=== PATIENT | male | born 1995 | race American Indian/Alaskan Native ===

== ENCOUNTER 2018-01-22 22:34 | Emergency (ER) | payer SELFPAY ==
[2018-01-22 23:37] LABS: Bilirubin,Urine NEG (Negative); Blood,Urine NEG (Negative); Color,Urine Yellow (Yellow); Mucus,Urine 1+ /HPF; Protein,Urine <15 mg/dL mg/dL (Negative)
[2018-01-22 23:49] LABS: Amphetamine Screen,Urine PRESUMPTIVE NEGATIVE; Benzodiazepines Screen,Urine PRESUMPTIVE NEGATIVE; Cocaine Screen,Urine PRESUMPTIVE NEGATIVE; Methadone Screen,Urine PRESUMPTIVE NEGATIVE; Opiate Screen,Urine PRESUMPTIVE NEGATIVE
[2018-01-23 00:14] LABS: Basophils % (Auto) 0.6 % (0.0-1.8); Eosinophils # (Auto) 0.1 K/mm3 (0.0-0.4); Eosinophils % (Auto) 1.4 % (0.0-4.3); Hematocrit 42.8 % (35.5-45.6); Hemoglobin 14.3 gm/dl (11.8-15.2); Lymphocytes # (Auto) 1.5 K/mm3 (1.2-5.4); Mean Corpuscular HGB Conc 33 % (32-34); Mean Corpuscular Hemoglobin 28 pg (28-32); Mean Corpuscular Volume 85 fl (84-94); Monocytes # (Auto) 0.4 K/mm3 (0.0-0.8); Monocytes % (Auto) 6.1 % (0.0-7.3); Platelet Count 188 K/mm3 (140-440); Red Blood Count 5.01 M/mm3 (3.65-5.03); Red Cell Distribution Width 12.6 % (13.2-15.2)
[2018-01-23 00:19] LABS: Cannabinoid Screen,Urine PRESUMPTIVE POSITIVE
[2018-01-23 00:30] LABS: BUN/Creatinine Ratio 11; Blood Urea Nitrogen 14 mg/dL (9-20); Hemolysis Index 12
--- NOTE | 2018-01-23 01:56 | Cat Scan Report ---
FINAL REPORT PROCEDURE: CT HEAD/BRAIN WO CON TECHNIQUE: Computerized tomography of the head was performed without contrast material. HISTORY: syncope COMPARISON: No prior studies are available for comparison. FINDINGS: Skull and scalp: Normal. Paranasal sinuses: Normal. Ventricles and subarachnoid spaces: Normal. Cerebrum: No evidence of hemorrhage, acute infarction or mass . Cerebellum and brainstem: No evidence of hemorrhage, acute infarction or mass. Vasculature: Normal. Comments: None. IMPRESSION: Normal Examination
[2018-01-23 02:59] LABS: Creatine Kinase MB 3.4 ng/mL (0.0-4.0)
[2018-01-23] MEDS ORDERED: NACL 0.9% 1000 ML 1,000 ML IV ONE ×3 (03:00→03:33)
--- NOTE | 2018-01-23 03:33 | Emergency Department Report ---
ED Syncope HPI - General Chief Complaint: Syncope Stated Complaint: SYNCOPE EPISODES Time Seen by Provider: 01/23/18 02:30 Source: patient Exam Limitations: no limitations - History of Present Illness Initial Comments: 22-year-old male with no shift in past medical or surgical history presents to the hospital status post possible syncopal episode at 10 PM. Patient states he does not remember the details. He remembers going to see a new home with his family. Apparently his mother found him on the floor. Episode was unwitnessed. Patient did not bite his tongue or urinate on himself. He can't remember if he has been eating or drinking appropriately. He has some mild pain to his right parietal area of his scalp. No other pain reported. Previous history of seizures. Patient is to marijuana use but denies alcohol or other drug abuse. - Related Data Allergies/Adverse Reactions: Allergies No Known Allergies Allergy (Unverified 01/22/18 23:06) ED Review of Systems ROS: Stated complaint: SYNCOPE EPISODES Other details as noted in HPI Comment: All other systems reviewed and negative Other: Constitutional: No fevers chills Eyes: No eye pain visual changes ENT: No ear pain or throat pain Neck: Denies pain Respiratory: Denies cough wheezing shortness of breath Cardiovascular: Denies chest pain, palpitations GI: Denies abdominal pain, nausea, vomiting, diarrhea : Denies dysuria Musculoskeletal: Denies back pain Skin: Denies rash, lesions, erythema Neurologic: Denies headache, numbness, weakness Psychiatric: Denies suicidal ideation, hallucinations ED Past Medical Hx - Past Medical History Previous Medical History?: No - Surgical History Past Surgical History?: No - Social History Smoking Status: Current Every Day Smoker Substance Use Type: Marijuana ED Physical Exam - General Limitations: No Limitations - Other Other exam information: General: No limitations, patient is alert in no acute distress Head exam: Mild tenderness to right parotid Area without hematoma or laceration Eyes exam: Normal appearance, pupils equal reactive to light, extraocular movements intact ENT: Moist mucous membrane, normal oropharynx Neck exam: Normal inspection, full range of motion, no meningismus nontender Respiratory exam: Clear to auscultation bilateral, no wheezes, rales, crackles Cardiovascular: Normal rate and rhythm, normal heart sounds Abdomen: Soft, nondistended, and nontender, with normal bowel sounds, no rebound, or guarding Extremity: Full range of motion normal inspection no deformity Back: Normal Inspection, full range of motion, no tenderness Neurologic: Alert, oriented x3, cranial nerves intact, no motor or sensory deficit, [id number] function intact. Psychiatric: normal affect, normal mood Skin: Warm, dry, intact ED Course Vital Signs 01/22/18 01/23/18 01/23/18 23:02 01:26 01:30 Temperature 98.6 F Pulse Rate 66 44 L 41 L Respiratory 18 18 19 Rate Blood Pressure 127/86 123/67 O2 Sat by Pulse 100 100 100 Oximetry 01/23/18 01/23/18 01/23/18 01:41 01:46 02:00 Temperature Pulse Rate 41 L 43 L Respiratory 20 15 16 Rate Blood Pressure 106/67 104/60 O2 Sat by Pulse 99 99 98 Oximetry 01/23/18 01/23/18 02:16 02:30 Temperature Pulse Rate 46 L 46 L Respiratory 16 17 Rate Blood Pressure 104/60 99/51 O2 Sat by Pulse 98 98 Oximetry - Reevaluation(s) Reevaluation #1: 01/23/18 03:32 Vital signs reveals significant orthostasis as suggested by increased heart rate with standing. Patient also had dizziness with standing. Blood pressure did not drop. To use a normal saline ordered ED Medical Decision Making - Lab Data Result diagrams: 01/22/18 23:27 01/22/18 23:27 Lab Results 01/22/18 01/22/18 01/22/18 Range/Units 23:27 23:27 23:27 WBC 6.6 (4.5-11.0) K/mm3 RBC 5.01 (3.65-5.03) M/mm3 Hgb 14.3 (11.8-15.2) gm/dl Hct 42.8 (35.5-45.6) % MCV 85 (84-94) fl MCH 28 (28-32) pg MCHC 33 (32-34) % RDW 12.6 L (13.2-15.2) % Plt Count 188 (140-440) K/mm3 Lymph % (Auto) 23.0 (13.4-35.0) % [place] % (Auto) 6.1 (0.0-7.3) % Eos % (Auto) 1.4 (0.0-4.3) % Baso % (Auto) 0.6 (0.0-1.8) % Lymph # 1.5 (1.2-5.4) K/mm3 [place] # 0.4 (0.0-0.8) K/mm3 Eos # 0.1 (0.0-0.4) K/mm3 Baso # 0.0 (0.0-0.1) K/mm3 Seg Neutrophils % 68.9 (40.0-70.0) % Seg Neutrophils # 4.5 (1.8-7.7) K/mm3 Sodium 138 (137-145) mmol/L Potassium 3.8 (3.6-5.0) mmol/L Chloride 99.1 (98-107) mmol/L Carbon Dioxide 26 (22-30) mmol/L Anion Gap 17 mmol/L BUN 14 (9-20) mg/dL Creatinine 1.3 (0.8-1.5) mg/dL Estimated GFR > 60 ml/min BUN/Creatinine Ratio 11 % Glucose 93 (75-100) mg/dL Calcium 9.0 (8.4-10.2) mg/dL Total Creatine Kinase 786 H (55-170) units/L CK-MB (CK-2) 3.4 (0.0-4.0) ng/mL CK-MB (CK-2) Rel Index 0.4 (0-4) Troponin T < 0.010 (0.00-0.029) ng/mL Urine Color (Yellow) Urine Turbidity (Clear) Urine pH (5.0-7.0) Ur Specific [place] (1.003-1.030) Urine Protein (Negative) mg/dL Urine Glucose (UA) (Negative) mg/dL Urine Ketones (Negative) mg/dL Urine Blood (Negative) Urine Nitrite (Negative) Urine Bilirubin (Negative) Urine Urobilinogen (<2.0) mg/dL Ur Leukocyte Esterase (Negative) Urine WBC (Auto) (0.0-6.0) /HPF Urine RBC (Auto) (0.0-6.0) /HPF Urine Mucus /HPF Urine Opiates Screen Urine Methadone Screen Ur Barbiturates Screen Ur Phencyclidine Scrn Ur Amphetamines Screen U Benzodiazepines Scrn Urine Cocaine Screen U Marijuana (THC) Screen Drugs of Abuse Note 02/23/18 02/23/18 02/24/18 Range/Units Unknown Unknown 04:49 WBC (4.5-11.0) K/mm3 RBC (3.65-5.03) M/mm3 Hgb (11.8-15.2) gm/dl Hct (35.5-45.6) % MCV (84-94) fl MCH (28-32) pg MCHC (32-34) % RDW (13.2-15.2) % Plt Count (140-440) K/mm3 Lymph % (Auto) (13.4-35.0) % [place] % (Auto) (0.0-7.3) % Eos % (Auto) (0.0-4.3) % Baso % (Auto) (0.0-1.8) % Lymph # (1.2-5.4) K/mm3 [place] # (0.0-0.8) K/mm3 Eos # (0.0-0.4) K/mm3 Baso # (0.0-0.1) K/mm3 Seg Neutrophils % (40.0-70.0) % Seg Neutrophils # (1.8-7.7) K/mm3 Sodium (137-145) mmol/L Potassium (3.6-5.0) mmol/L Chloride (98-107) mmol/L Carbon Dioxide (22-30) mmol/L Anion Gap mmol/L BUN (9-20) mg/dL Creatinine (0.8-1.5) mg/dL Estimated GFR ml/min BUN/Creatinine Ratio % Glucose (75-100) mg/dL Calcium (8.4-10.2) mg/dL Total Creatine Kinase 525 H (55-170) units/L CK-MB (CK-2) (0.0-4.0) ng/mL CK-MB (CK-2) Rel Index (0-4) Troponin T (0.00-0.029) ng/mL Urine Color Yellow (Yellow) Urine Turbidity Clear (Clear) Urine pH 6.0 (5.0-7.0) Ur Specific [place] 1.026 (1.003-1.030) Urine Protein <15 mg/dl (Negative) mg/dL Urine Glucose (UA) Neg (Negative) mg/dL Urine Ketones Neg (Negative) mg/dL Urine Blood Neg (Negative) Urine Nitrite Neg (Negative) Urine Bilirubin Neg (Negative) Urine Urobilinogen 2.0 (<2.0) mg/dL Ur Leukocyte Esterase Neg (Negative) Urine WBC (Auto) 1.0 (0.0-6.0) /HPF Urine RBC (Auto) 1.0 (0.0-6.0) /HPF Urine Mucus 1+ /HPF Urine Opiates Screen Presumptive negative Urine Methadone Screen Presumptive negative Ur Barbiturates Screen Presumptive negative Ur Phencyclidine Scrn Presumptive negative Ur Amphetamines Screen Presumptive negative U Benzodiazepines Scrn Presumptive negative Urine Cocaine Screen Presumptive negative U Marijuana (THC) Screen Presumptive positive Drugs of Abuse Note Disclamer - EKG Data -: EKG Interpreted by Ri EKG shows normal: sinus rhythm, axis (45), QRS complexes (93), ST-T waves ( early repol. no stemi) Rate: bradycardia (55) - EKG Data When compared to previous EKG there are: previous EKG unavailable - Radiology Data Radiology results: report reviewed read By radiologist CT head no acute findings - Medical Decision Making After 3 L IV fluids patient vital signs are repeat still has am increase in heart rate with standing however, no drop in blood pressure has been noted. CK trending downward. Patient ambulating in the ED without difficulty and denies dizziness. He will be discharged home to follow up with primary care doctor and photographic specialist for further evaluation - Differential Diagnosis syncope, seizure, vasovagal, anemia, dehydration, ICH Critical Care Time: No Critical care attestation.: If time is entered above; I have spent that time in minutes in the direct care of this critically ill patient, excluding procedure time. ED Disposition Clinical Impression: Syncope, Head injury Disposition: TO HOME OR SELFCARE Is pt being admited?: No Does the pt Need Aspirin: No Condition: Stable Instructions: Syncope (ED) Additional Instructions: Follow-up with the clinic or primary care doctor provided. Return is symptoms worsen as indicated by your discharge instruction. Take Motrin or Tylenol as needed for pain. Referrals: EBONY MENESES MD [Staff Physician] - 3-5 Days (Primary care doctor) [facility] [Provider Group] - 3-5 Days (Primary care clinic) Time of Disposition: 06:03
[2018-01-23 06:24] VITALS: BP 101/64
== END 2018-01-23 06:24 | disposition home or self-care (01) ==
LOC: ED 22:34
DX: S09.90XA Unspecified injury of head, initial encounter (principal); R55 Syncope and collapse; F17.200 Nicotine dependence, unspecified, uncomplicated; F12.10 Cannabis abuse, uncomplicated; X58.XXXA Exposure to other specified factors, initial encounter; Y93.89 Activity, other specified; Y92.89 Other specified places as the place of occurrence of the external cause; Y99.8 Other external cause status
CPT/HCPCS: 36415; 70450; 80048; 80307; 81001; 82550; 82553; 84484; 85025; 93005; 93010; 96360; 96361; 99284; J7030

== ENCOUNTER 2021-07-01 00:10 | Emergency (ER) | payer SELFPAY ==
[2021-07-01 02:06] VITALS: BP 140/86
== END 2021-07-01 03:51 | disposition left against medical advice (07) ==
LOC: ED 00:10
DX: M79.89 Other specified soft tissue disorders (principal); Z53.21 Procedure and treatment not carried out due to patient leaving prior to being seen by health care provider